=== PATIENT | female | born 1960 | race Caucasian/White ===

== ENCOUNTER → 2017-04-06 | Outpatient (CLI) | payer OTHER ==
[~2017-04-06] MED LIST: AMIT25TA PO; COZA50TA PO; ESTR25TA PO; LANS30CA PO; LISI-538 PO; MECL-68 PO; MEDR1TAB2 PO; MELO7.5T7 PO; PRAM0.5T4 PO; PRAV20TA2 PO; ROBA500T PO; TRAM37.53 PO
--- NOTE | 2017-04-06 12:35 | REPMRS ---
Patient History The patient states she had a clinical breast exam in 03/2017. Patient is postmenopausal. No known family history of cancer. Taking estrogen for 9 years. Taking progesterone for 9 years. Digital Woman Screen Mammo: April 06, 2017 - Exam #: [id number] Bilateral MLO and CC view(s) were taken. Technologist: Petra Tang, Technologist Prior study comparison: October 04, 2015, digital woman screen mammo performed at [facility] to [facility]. March 22, 2014, digital woman screen mammo performed at [facility] to [facility]. FINDINGS: There are scattered fibroglandular densities. There has been no change in the appearance of the mammogram from the prior studies. There is a mild amount of residual fibroglandular tissue which is fairly symmetric. There is no interval development of dominant mass, architectural distortion, or clustered microcalcification suggestive of malignancy. ASSESSMENT: BI-RADS/ACR category 1 mammogram. Negative. Recommendation Routine screening mammogram in 1 year (for women over age 40). This mammogram was interpreted with the aid of an FDA-approved computer-aided dectection system. Electronically Signed By: Yasmani Torres MD 04/06/17 [id number]
== END ==
LOC: M WHC 10:41
PROVIDERS: ATTEND Nurse Practitioner Family
DX: Z12.31 Encounter for screening mammogram for malignant neoplasm of breast (principal)

== ENCOUNTER → 2018-08-02 | Outpatient (CLI) | payer OTHER | LOC: M WHC 11:15 | DX: Z12.31 Encounter for screening mammogram for malignant neoplasm of breast (principal); Z78.0 Asymptomatic menopausal state; Z92.23 Personal history of estrogen therapy; Z92.29 Personal history of other drug therapy | CPT/HCPCS: 77067 ==